=== PATIENT | male | born 1945 | race Caucasian/White ===

== ENCOUNTER 2018-07-24 10:14 | Outpatient (CLI) | payer MEDICARE, BC, SELFPAY ==
[2018-07-24 16:29] LABS: Kit/Specimen SENT
== END 2018-07-24 10:34 ==
PROVIDERS: Visit Provider Nurse Practitioner Family
DX: E78.2 Mixed hyperlipidemia (principal); I10 Essential (primary) hypertension; E55.9 Vitamin D deficiency, unspecified; Z79.899 Other long term (current) drug therapy
CPT/HCPCS: 36415